=== PATIENT | male | born 1990 | race Two or more races ===

== ENCOUNTER 2020-10-31 18:48 | Emergency (ER) | payer SELFPAY ==
[~2020-10-31] VITALS: Ht 172.7 cm; Wt 68.0 kg
[2020-10-31 18:49] VITALS: BP 129/94
[2020-10-31] MEDS ORDERED: ACETAMINOPHEN 325MG TABLET PO STA (19:23)
[2020-10-31] MEDS ORDERED: ONDANSETRON HCL 4MG TABLET PO ONE (19:30)
[2020-10-31 20:02] LABS: BASOPHILS % 0.6 % (0.0-2.0); EOSINOPHILS % 1.9 % (0.0-5.0); HEMATOCRIT. 42.6 % (42.0-52.0); HEMOGLOBIN. 14.6 g/dL (14.0-18.0); LYMPHOCYTES % 12.8 % (20.0-50.0); MEAN CORPUSCULAR HEMOGLOBIN 30.5 pg (28.0-32.0); MEAN CORPUSCULAR VOLUME 88.8 fL (80.0-94.0); MEAN PLATELET VOLUME 9.6 fl (7.4-10.4); MONOCYTES % 5.1 % (2.0-8.0); NEUTROPHILS % 79.6 % (40.0-76.0); PLATELET 196 x1000/uL (130-400); RED CELL DISTRIBUTION WIDTH 13.1 % (11.6-14.6)
[2020-10-31 20:07] LABS: CHLORIDE 108 mEq/L (98-107)
[2020-10-31 20:09] LABS: INR 1.1; PROTHROMBIN TIME 11.4 sec (9.6-11.0)
[2020-10-31 20:11] LABS: ETHANOL BLOOD < 10 mg/dL
[2020-10-31] MEDS ORDERED: TOPUD PO (20:55)
[2020-10-31 21:15] LABS: CLARITY URINE CLEAR (CLEAR); COLOR URINE YELLOW (YELLOW); KETONES URINE NEGATIVE (NEGATIVE); LEUKOCYTE ESTERASE URINE NEGATIVE (NEGATIVE); NITRITE URINE NEGATIVE (NEGATIVE); OCCULT BLOOD URINE 3+ (NEGATIVE); PROTEIN URINE NEGATIVE (NEGATIVE); SPECIFIC GRAVITY URINE 1.031 (1.005-1.030)
== END 2020-10-31 21:15 | disposition home or self-care (01) ==
LOC: ER 18:48
DX: R10.31 Right lower quadrant pain (principal)
CPT/HCPCS: 36415; 74176; 80053; 80320; 81003; 83690; 85025; 85610; 99284; Q0162; G0480